=== PATIENT | female | born 1960 | race Caucasian/White ===

== ENCOUNTER 2020-05-27 22:43 | Emergency (ER) | payer OTHER, SELFPAY ==
[2020-05-27 22:44] VITALS: BP 133/76; PULSE 88; RESP 18; TEMP 36.3; O2SAT 100
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
[2020-05-27 23:30] VITALS: BP 126/73; PULSE 82; RESP 16; TEMP 36.7; O2SAT 100
== END 2020-05-27 23:31 | disposition home or self-care (01) ==
PROVIDERS: Emergency Provider Emergency Medicine
DX: S01.01XA Laceration without foreign body of scalp, initial encounter (principal); Y08.89XA Assault by other specified means, initial encounter
CPT/HCPCS: 12001; 99282

== ENCOUNTER 2022-09-08 13:59 | Emergency (ER) | payer OTHER, SELFPAY ==
--- NOTE | ~2022-09-08 | XR_ITS ---
EXAMINATION: XR wrist LT min 3V DATE: 09/08/2022 14:22 INDICATION: Left wrist pain TECHNIQUE: Posteroanterior, ulnar deviation, oblique, and lateral views of the left wrist were obtain ed. COMPARISON: None available FINDINGS: Bone alignment is normal. There is no fracture. 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 The soft tissues are unremarkable. IMPRESSION: 1. No acute osseous abnormality. Reviewed, dictated and finalized at location B. ION MECHANIC APPRENTICE
--- NOTE | 2022-09-08 14:05 | ED.UPPEXIN ---
HPI - Extremity Injury (Upper) General Chief Complaint: Extremity Injury, Upper Stated Complaint: injury to left hand/wrist Time Seen by Provider: 09/08/22 14:09 Source: patient and RN notes reviewed Mode of arrival: ambulatory Limitations: no limitations History of Present Illness HPI narrative: 61-year-old female presents to the [facility] with complaints of left hand pain. 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 Patient states last night she injured the dorsal aspect of the left hand. Does have good range of motion. Sensation intact. No snuffbox tenderness Related Data Home Medications Medication Instructions Recorded Confirmed No Home Medications 05/27/20 09/08/22 Allergies Allergy/AdvReac Type Severity Reaction Status Date / Time No Known Allergies Allergy Mild Verified 09/08/22 14:13 Review of Systems Review of Systems: All systems reviewed & are unremarkable except as noted in HPI and below Constitutional: Constitutional: Reports no additional constitutional complaints Eyes: Eyes: Reports no additional eye complaints ENT: Reports system reviewed and no additional complaints, except as documented Cardiovascular: Cardiovascular: Reports no additional cardiovascular complaints, Denies chest pain and Denies dyspnea Respiratory: Respiratory: Reports no additional respiratory complaints, Denies chest congestion, Denies cough and Denies dyspnea Gastrointestinal: Gastrointestinal: Reports no additional gastrointestinal complaints, Denies abdominal pain, Denies nausea and Denies vomiting Musculoskeletal: Musculoskeletal: Reports as per HPI, Reports arthralgias and Reports joint swelling Integumentary/Breasts: Skin/Breast: Reports system reviewed and no additional complaints, except as docu Neurologic: Reports system reviewed and no additional complaints, except as documented Psychiatric: Psychiatric: Reports no additional psychiatric complaints Allergic/Immunologic: Allergic/Immunologic: Reports no additional allergic/immunologic complaints PMFSH Comments At the time of my signature, I reviewed and agree with the nursing past medical, surgical, social, and family history. There is no relevant family history pertinent to the patient complaint. Exam Const: General: cooperative, healthy appearing, comfortable, no acute distress, well developed, alert and well nourished Nutritional Appearance: well nourished Orientation/consciousness: patient oriented x3 Limitations: no limitations HENMT: Head: normal to inspection Ears: hearing grossly normal bilaterally and external ears normal Face/Nose/Sinus: Normal external nose present, Normal nares present, Normal nasal mucous membranes and turbinates present and normal facial exam Face and sinus: normal facial exam Eyes: General: appearance normal, both eyes and all related structures Alignment and Position: alignment normal Periorbital: periorbital findings normal Conjunctivae: conjunctivae normal Pupils: Equal, round and reactive pupils present EOM: EOMs intact bilaterally Neck: Neck: normal visual inspection, full ROM, no lymphadenopathy and no meningeal signs Chest: Chest palpation & inspection: normal inspection of the chest Resp: Effort & Inspection: normal respiratory effort and able to speak in complete sentences Auscultation: clear to auscultation bilaterally, no crackles, no rales, no rhonchi and no wheezes Cardio: Rate: regular rate Rhythm: regular rhythm Back/Spine/Pelvis: Cervical Spine: cervical ROM normal Thoracic/Lumbar Spine: No thoracic spinal tenderness Skin: General skin exam: normal color and no rashes or lesions noted Lesions: no lesions Rashes: no rashes Wounds: no wounds Neuro: General: patient oriented x3, gait normal, tone normal, moves all extremities and no meningeal signs Cranial nerves: Yes Equal, round and reactive pupils present Cognition (Neuro): normal cognition Speech: normal speech Gait exam (Neuro):
[2022-09-08 14:10] VITALS: BP 123/72; PULSE 80; RESP 18; TEMP 36.8; O2SAT 98
== END 2022-09-08 14:42 | disposition home or self-care (01) ==
PROVIDERS: Emergency Provider Nurse Practitioner
DX: S60.222A Contusion of left hand, initial encounter (principal); X58.XXXA Exposure to other specified factors, initial encounter; M25.532 Pain in left wrist
CPT/HCPCS: 73110; 99213; G0463

== ENCOUNTER 2025-03-05 11:32 | Emergency (ER) | payer MEDICARE, SELFPAY ==
--- NOTE | ~2025-03-05 | XR_ITS ---
XR_[id number]_CR 03/05/2025 12:16 Indication: Right lateral neck pain Procedure: 4 view cervical spine Comparison: No prior studies for comparison. Findings: Straightening of cervical lordosis. There is degenerative anterolisthesis at C4-5. There is disc narrowing at C5-6 and C6-7. There is moderate multilevel uncinate and facet hypertrophy. Odonto id process is normal. Impression: 1: Moderate cervical spondylosis. Reviewed, dictated and finalized at location A. Impression: 1: Moderate cervical spondylosis.
--- NOTE | ~2025-03-05 | XR_ITS ---
[XR ribs LT 2V ] INDICATION: Left rib pain TECHNIQUE: Frontal projection of the upper left ribs, frontal projection of the lower left ribs, obli que projection of all the left ribs, frontal inspiratory chest x-ray for interpretation. FINDINGS: There are no displaced rib fractures identified. There are no soft tissue abnormality see n. The lungs are clear. IMPRESSION: 1:No acute displaced rib fractures. Reviewed, dictated and finalized at location A.
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
[2025-03-05 11:42] VITALS: BP 133/66; PULSE 83; RESP 18; TEMP 36.6; O2SAT 100
--- OUTSIDE RECORDS SUMMARY | 2025-03-05 11:45 | XMS_ITS | Clinical Summary ---
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 Gender Identity Not on file Sexual Orientation Not on file Plan of Treatment Health Maintenance Due Date Last Done Comments Hepatitis C Virus (HCV) Screening 1960 TdaP Immunization 1960 Pap Smear 11/21/1980 Cervical Cancer Screening (CCS) 11/21/1989 HPV/Cotest 11/21/1989 Cologuard 11/21/2004 Colonoscopy 11/21/2004 Colorectal Cancer Screening 11/21/2004 Immunochemical Fecal Occult Blood 11/21/2004 Pneumococcal Immunization (5 0+ years) (1 of 1 - PCV) 11/21/2009 Zoster Immunization (1 of 2) 11/21/2009 SARS-COV-2 Immunization ( - 2023-25 season) 2024 Influenza Immunization (#1) 2025 Respiratory Syncytial Virus (RSV) Immunization (Adult) (1 - 1-dose 75+ series) 11/21/2034 Hepatitis B Immunization Aged Out No longer eligible based on patient's age to complete this topic Human Papillomavirus (HPV) Immunization Aged Out No longer eligible b ased on patient's age to complete this topic Meningococcal Immunization (ACWY) Aged Out No longer eligible based on patient's age to complete this topic Rotavirus Immunization Aged Out No lo nger eligible based on patient's age to complete this topic
--- OUTSIDE RECORDS SUMMARY | 2025-03-05 11:46 | XMS_ITS ---
Author Organization [facility] [employer] Address [address] [place] [address] Care Team Providers Care Punching Machine Operator Name Role Phone StephanieGabino Primary Care Provider REASON FOR VISIT BLOOD WORK/ RESWAB Encounters Encounter Location Date Provider Diagnosis [facility] [address] [place] [id number] 04/02/2024 Gabino Brown Plan Of Treatment Next Appt Details Provider Name:Gabino Brown, 03/09/2025 09:30:00 AM, [address] [place] [address], [phone], Progress Notes * MARISAConor JAIMESCelineOB:1960 (64 yo F)Acc No.[id number]:04/02/2024 Progress Notes Patient: Fara Thomas Provider: Amarilis Brown MD :1960 A ge:63 Y S ex:Female Date:04/02/2024 Phone: Address:[address] [place], [place] [id number] Subjective: * Chief Complaints: * B LOOD WORK/ RESWAB * Electronic signature of Sriram Brown on 03/05/2025 at 11:45 AM CDT Sign off status: Pending * Provider: Amarilis Brown MD Date: 0 04/02/2024 Generated for Christinei ng/Faxing/eTransmitting on: 03/05/2025 11:45 AM CDT
--- OUTSIDE RECORDS SUMMARY | 2025-03-05 11:46 | XMS_ITS | Clinical Summary ---
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 Gender Identity Not on file Sexual Orientation Not on file Plan of Treatment Health Maintenance Due Date Last Done Comments DTAP/TDAP/TD VACCINES (1 - Tdap) 11/21/1978 COLORECTAL SCREENING 11/21/2004 Colorectal Cancer Screening 11/21/2004 FIT-DNA Q 3 years 11/21/2004 FIT/FOBT Q 1 year 11/21/2004 Flex Sig/CT Colonography Q 5 years 11/21/2004 PNEUMOCOCCAL VACCINE 50+ YEA RS (1 of 1 - PCV) 11/21/2009 ZOSTER VACCINE (1 of 2) 11/21/2009 BREAST CANCER SCREENING 06/02/2023 06/02/2022, 06/02 OSTEOPOROSIS SCREENING 11/21/2024 INFLUENZA VACCINE (#1) 2025 RSV VACCINE (60+ or ) (1 - 1-dose 75+ series) 11/21/2034 Insurance [address] [id number] [email or web address] PPO Care Teams Cyanide Pot Tender Relationship Specialty Start Date End Date Tony Mccullough MD PCP - General Internal Medicine 02/11/20
--- OUTSIDE RECORDS SUMMARY | 2025-03-05 11:46 | XMS_ITS ---
Author Organization [employer] [facility] Address [address] [place] [address] Care Team Providers Care Group Chief Operator Name Role Phone FIORELLA CARBALLO Primary Care Provider REASON FOR VISIT reswab hpv ruddy Encounters Encounter Location Date Provider Diagnosis [facility] [address] [place] [address] 04/18/2024 FIORELLA CARBALLO Plan Of Treatment No Information Progress Notes * Joel JOVELOB:1960 (64 yo F)Acc No.[id number]:04/18/2024 Progress Notes Patient: Fara SOLORZANO Provider: Amarilis CARBALLO MD :1960 A ge:63 Y S ex:Female Date:04/18/2024 Phone: Address:[address] [place], [place] [id number] Subjective: * Chief Complaints: * 1 . Reswab hpv ruddy. * Medical History: Objective: * Vitals: Assessment: Plan: * Treatment: * Billing Information: * Visit Code: * Procedure Codes: * Electronic signature of DARIANA CARBALLO MD on 03/05/2025 at 11:46 AM CDT Sign off status: Pending * Provider: Amarilis CARBALLO MD Date: 0 04/18/2024 Generated for Ozzie dennis/Sherwin/eTransmitting on: 03/05/2025 11:46 AM CDT
--- OUTSIDE RECORDS SUMMARY | 2025-03-05 11:47 | XMS_ITS | Encounter Summary ---
Author Organization [facility] Address [address] [place] [address] Care Team Providers Care Principal Scientist Name Role Phone Tony Mccullough MD Primary Care Provider [phone] Encounter Details Date Type Department Care Team (Late st Contact Info) Description 09/18/2001 Outpatient Historical [facility] Family Medicine [facility] [address] [place] [address] Víctor Baxter MD [address] [place] [address] Social History Tobacco Use Types Packs/Day Years Used Date Smoking Tobacco: Never Assessed Comments Unknown Sex and Gender Information Value Date Recorded Sex Assigned at Not on file 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 Gender Identity Not on file Sexual Orientation Not on file documented as of this encounter Plan of Treatment Not on file documented as of this encounter Visit Diagnoses Not on filedocumented in this encounter Additional Health Concerns Infection Onset Date Last Indicated Resolved Time R/O COVID-19 02/11/2020 02/11/2020 02/13/2020 6:31 AM CDT R/O COVID-19 06/01/2020 06/01/2020 06/03/2020 5:17 AM MANAGER MEDIA documented as of this encounter Care Teams Principal Scientist Relationship Specialty Start Date End Date Tony Mccullough MD PCP - General Internal Medicine 02/11/20 documented as of this encounter
--- OUTSIDE RECORDS SUMMARY | 2025-03-05 11:47 | XMS_ITS | Encounter Summary ---
Author Organization [facility] Address [address] [place] [address] Care Team Providers Care Global Mobility Specialist Name Role Phone Tony Mccullough MD Primary Care Provider [phone] Encounter Details Date Type Department Care Team (Late st Contact Info) Description 02/27/2003 Outpatient Historical [facility] Family [facility] [address] [place] [address] Víctor Baxter MD [address] [place] [address] Social History Tobacco Use Types Packs/Day Years Used Date Smoking Tobacco: Never Assessed Comments Unknown Sex and Gender Information Value Date Recorded Sex Assigned at Not on file 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 Gender Identity Not on file Sexual Orientation Not on file documented as of this encounter Plan of Treatment Not on file documented as of this encounter Visit Diagnoses Not on filedocumented in this encounter Additional Health Concerns Infection Onset Date Last Indicated Resolved Time R/O COVID-19 02/11/2020 02/11/2020 02/13/2020 6:31 AM CDT R/O COVID-19 06/01/2020 06/01/2020 06/03/2020 5:17 AM COMMUTATOR OPERATOR documented as of this encounter Care Teams Global Mobility Specialist Relationship Specialty Start Date End Date Tony Mccullough MD PCP - General Internal Medicine 02/11/20 documented as of this encounter
--- OUTSIDE RECORDS SUMMARY | 2025-03-05 11:47 | XMS_ITS ---
Author Organization [employer] [facility] Address [address] [facility] [place] [address] Care Team Providers Care Sql Tech Name Role Phone FIORELLA CARBALLO Primary Care Provider REASON FOR VISIT reswab hpv/discuss tirzepatide Encounters Encounter Location Date Provider Diagnosis [facility] [address] [place] [address] 08/12/2024 FIORELLA CARBALLO Plan Of Treatment No Information Progress Notes * Joel JOVELOB:1960 (64 yo F)Acc No.[id number]:08/12/2024 Progress Notes Patient: Fraa SOLORZANO Provider: Amarilis CARBALLO MD :1960 A ge:63 Y S ex:Female Date:08/12/2024 Phone: Address:[address] [place], [place] [phone] Subjective: * Chief Complaints: * 1 . Reswab hpv/discuss tirzepatide. * Medical History: Objective: * Vitals: Assessment: Plan: * Treatment: * Billing Information: * Visit Code: * Procedure Codes: * Electronic signature of DARIANA CARBALLO MD on 03/05/2025 at 11:47 AM CDT Sign off status: Pending * Provider: Amarilis CARBALLO MD Date: 0 08/12/2024 Generated for Ozzie dennis/Sherwin/eTbhavyasmitting on: 0 03/05/2025 11:47 AM CDT
--- OUTSIDE RECORDS SUMMARY | 2025-03-05 11:47 | XMS_ITS | Encounter Summary ---
Author Organization [facility] Address [address] [place] [address] Care Team Providers Care Parking Meter Servicer Name Role Phone Tony Mccullough MD Primary Care Provider [phone] Encounter Details Date Type Department Care Team (Late st Contact Info) Description 08/14/2001 Outpatient Historical [facility] Family Medicine [facility] [address] [place] [address] Víctor Baxter MD [address] [place] [address] Social History Tobacco Use Types Packs/Day Years Used Date Smoking Tobacco: Never Assessed Comments Unknown Sex and Gender Information Value Date Recorded Sex Assigned at Not on file Legal Sex Female 5:23 AM DIRECTOR MARKET INTELLIGENCE Gender Identity Not on file Sexual Orientation Not on file documented as of this encounter Plan of Treatment Not on file documented as of this encounter Visit Diagnoses Not on filedocumented in this encounter Additional Health Concerns Infection Onset Date Last Indicated Resolved Time R/O COVID-19 02/11/2020 02/11/2020 02/13/2020 6:31 AM CDT R/O COVID-19 06/01/2020 06/01/2020 06/03/2020 5:17 AM DIRECTOR MARKET INTELLIGENCE documented as of this encounter Care Teams Parking Meter Servicer Relationship Specialty Start Date End Date Tony Mccullough MD PCP - General Internal Medicine 02/11/20 documented as of this encounter
--- OUTSIDE RECORDS SUMMARY | 2025-03-05 11:47 | XMS_ITS | Clinical Summary ---
Author Organization [address] Address [address] [place] [address] Care Team Providers Care Drying Tunnel Operator Name Role Phone No, Physician Primary Care Provider [phone] Allergies Active Allergy Reactions Criticality Noted Date Comments Diphenhydramine Fluorometholone Other (See comments) Low 09/26/2023 Unknown Neomycin-Polymyxin B-Dexameth Other (See comments) Low 09/26/2023 Rash, swelling Tobramycin-Dexamethasone Other (See comments) Low 09/26/2023 Rash, swelling Medications clindamycin (CLEOCIN) 150 mg capsule TAKE 2 CAPSULES BY MOUTH TWICE DAILY UNTIL GONE 05/20/2024 Active Active Problems No known active problems Surgical History Surgery Date Site/Laterality Comments [place] DELIVERY ONLY Section - (Added by TW Conv) KNEE SURGERY Knee Surgery - (Added by TW Conv) Social History Tobacco Use Types Packs/Day Years Used Date Smoking Tobacco: Never Tobacco Cessation:Counseling Given: Not Answered Comments Unknown Sex and Gender Information Value Date Recorded Sex Assigned at Not on file Legal Sex Female 8:46 AM SUPERVISOR ELEMENTARY EDUCATION Gender Identity Not on file Sexual Orientation Not on file Obstetrics History Last Filed Vital Signs Vital Sign Reading Time Taken Comments Blood Pressure 126/80 06/22/2024 5:26 PM SUPERVISOR ELEMENTARY EDUCATION Pulse 93 06/22/2024 5:26 PM SUPERVISOR ELEMENTARY EDUCATION Temperature 37.6 C (99.7 F) 06/22/2024 5:26 PM SUPERVISOR ELEMENTARY EDUCATION Respiratory Rate 20 06/22/2024 5:26 PM SUPERVISOR ELEMENTARY EDUCATION Oxygen Saturation 99% 06/22/2024 5:26 PM SUPERVISOR ELEMENTARY EDUCATION Inhaled Oxygen Concentration - - Weight 61.7 kg (136 lb) 06/22/2024 5:26 PM SUPERVISOR ELEMENTARY EDUCATION Height 157.5 cm (5' 2.01) 09/26/2023 9:32 AM CS T Body Mass Index 24.87 09/26/2023 9:32 AM SUPERVISOR ELEMENTARY EDUCATION Plan of Treatment Health Maintenance Due Date Last Done Comments Breast Cancer Screening-Mammogram 1960 Cervical Cancer Screening 1960 Colon Cancer Screening-Colonoscopy 1960 Depression Screening 1960 Fall Risk Assessment 1960 Hepatitis C Screening 1960 Osteoporosis Screening-Bone Density Scan 1960 DTaP/Tdap/Td Vaccine (1 - Tdap) 11/21/1970 Hepatitis B Screening 11/21/1977 Pneumococcal vaccine 65+ (1 of 1 - PCV) 11/21/2009 Zoster Vaccine (1 of 2) 11/21/2009 Well Visit 65+ 11/21/2024 Influenza Vaccine (#1) 2025 Insurance [facility] [id number] Care Teams Drying Tunnel Operator Relationship Specialty Start Date End Date No, Physician PCP - General 09/08/22
--- OUTSIDE RECORDS SUMMARY | 2025-03-05 11:47 | XMS_ITS | Encounter Summary ---
Author Organization [facility] Address [address] [place] [address] Care Team Providers Care Branch General Manager Name Role Phone Tony Mccullough MD Primary Care Provider [phone] Encounter Details Date Type Department Care Team (Latest Contact Info) Description 10/04/2005 Outpatient Historical [place] [address] [place] [address] Other Screening Mammogram (Primary Dx) Social History Tobacco Use Types Packs/Day Years Used Date Smoking Tobacco: Never Assessed Comments Unknown Sex and Gender Information Value Date Recorded Sex Assigned at Not on file Legal Sex Female 5:23 AM WASHERY ENGINEER Gender Identity Not on file Sexual Orientation Not on file documented as of this encounter Plan of Treatment Not on file documented as of this encounter Visit Diagnoses Diagnosis Other screening mammogram- Primary documented in this encounter Additional Health Concerns Infection Onset Date Last Indicated Resolved Time R/O COVID-19 02/11/2020 02/11/2020 02/13/2020 6:31 AM CDT R/O COVID-19 06/01/2020 06/01/2020 06/03/2020 5:17 AM WASHERY ENGINEER documented as of this encounter Care Teams Branch General Manager Relationship Specialty Start Date End Date Tony Mccullough MD PCP - General Internal Medicine 02/11/20 documented as of this encounter
--- OUTSIDE RECORDS SUMMARY | 2025-03-05 11:47 | XMS_ITS ---
Author Organization [facility] Address [address] [facility] [place] [address] Care Team Providers Care Operating Room Scheduler Name Role Phone FIORELLA CARBALLO Primary Care Provider REASON FOR VISIT RESWAB HPV/ HM Encounters Encounter Location Date Provider Diagnosis [facility] [address] [place] [address] 08/19/2024 FIORELLA CARBALLO Plan Of Treatment No Information Progress Notes * Joel JOVELOB:1960 (64 yo F)Acc No.[id number]:08/19/2024 Progress Notes Patient: Fara SOLORZANO Provider: Amarilis CARBALLO MD :1960 A ge:63 Y S ex:Female Date:08/19/2024 Phone: Address:[address] [place], [place] [address] Subjective: * Chief Complaints: * 1 . RESWAB HPV/ HM. * Medical History: Objective: * Vitals: Assessment: Plan: * Treatment: * Billing Information: * Visit Code: * Procedure Codes: * Electronic signature of DARIANA CARBALLO MD on 03/05/2025 at 11:46 AM CDT Sign off status: Pending * Provider: Amarilis CARBALLO MD Date: 0 08/19/2024 Generated for Christinei ng/Faemilg/eTransmitting on: 0 03/05/2025 11:46 AM CDT
--- OUTSIDE RECORDS SUMMARY | 2025-03-05 11:47 | XMS_ITS ---
Author Organization [facility] Address [address] [place] [address] Care Team Providers Care Ceramics Teacher Name Role Phone Gabino Brown Primary Care Provider REASON FOR VISIT reswab hpv/discuss tirzepatide Encounters Encounter Location Date Provider Diagnosis [facility] [address] [place] [address] 08/12/2024 Gabino Brown Plan Of Treatment Next Appt Details Provider Name:Gabino Brown, 03/09/2025 09:30:00 AM, [address] [place] [address], [phone], Progress Notes * TAMIKONAOMI ConorCelineOB:1960 (64 yo F)Acc No.[id number]:08/12/2024 Patient: Fara Thomas Provider: Amarilis Brown MD :1960 A ge:63 Y S ex:Female Date:08/12/2024 Phone: Address:[address] [place], [place] [phone] Subjective: * Chief Complaints: * R eswab hpv/discuss tirzepatide * Electronic signature of Sriram Brown on 03/05/2025 at 11:47 AM CDT Sign off status: Pending * Provider: Amarilis Brown MD Date: 0 08/12/2024 Generated for Ozzie dennis/Sherwin/eTransmitting on: 0 03/05/2025 11:47 AM CDT
--- OUTSIDE RECORDS SUMMARY | 2025-03-05 11:48 | XMS_ITS | Encounter Summary ---
Author Organization [facility] Address [address] [place] [address] Care Team Providers Care Tip Cutter Name Role Phone Tony Mccullough MD Primary Care Provider [phone] Encounter Details Date Type Department Care Team (Latest Contact Info) Description 10/16/2005 Outpatient Historical [facility] Brown, [place] [address] [place] [address] Observation for Other Specified Suspected Conditions (Primary Dx) Social History Tobacco Use Types Packs/Day Years Used Date Smoking Tobacco: Never Assessed Comments Unknown Sex and Gender Information Value Date Recorded Sex Assigned at Not on file Legal Sex Female 5:23 AM SERVICE MEMBER Gender Identity Not on file Sexual Orientation Not on file documented as of this encounter Plan of Treatment Not on file documented as of this encounter Visit Diagnoses Diagnosis Observation for other specified suspected conditions- Primary documented in this encounter Additional Health Concerns Infection Onset Date Last Indicated Resolved Time R/O COVID-19 02/11/2020 02/11/2020 02/13/2020 6:31 AM CDT R/O COVID-19 06/01/2020 06/01/2020 06/03/2020 5:17 AM SERVICE MEMBER documented as of this encounter Care Teams Tip Cutter Relationship Specialty Start Date End Date Tony Mccullough MD PCP - General Internal Medicine 02/11/20 documented as of this encounter
--- OUTSIDE RECORDS SUMMARY | 2025-03-05 11:48 | XMS_ITS | Patient Health Record ---
Author Organization Alberto Mccullough MD [facility] Address [address] [place], [place] [address] Care Team Providers Care Cable Installer Name Role Phone Alberto Mccullough Primary Care Provider Allergies No Known Allergies Results Component Value Reference Range Notes TSH Reviewed date:10/17/2024 12:52:20 PM Interpretation:Abnormal Performing Lab:[facility] [employer], Phone - [phone], [facility]/Report: TSH 3.140 0.450-4.500 uIU/mL HEMOGLOBIN A1c Reviewed date:10/17/2024 12:52:20 PM Interpretation:Abnormal Performing Lab:[facility] [employer], Phone - [phone], Director - Marco Notes/Report: Hemoglobin A1c 5.6 4.8-5.6 % . Prediabetes: 5.7 - 6.4 Diabetes: >6.4 Glycemic control for adults with diabetes: <7.0 COMPREHENSIVE METABOLIC PANE L Reviewed date:10/17/2024 12:52:20 PM Interpretation:Abnormal Performing Lab:[facility] [employer] [facility], Phone - [phone], Director - PhDMaruo Notes/Report: Glucose 88 70-99 mg/dL BUN 11 8-27 mg/dL Creatinine 0.60 0.57-1.00 mg/dL eGFR 100 >59 mL/min/1.73 BUN/Creatinine Ratio 18 12-28 Sodium 141 134-144 mmol/L Potassium 4.4 3.5-5.2 mmol/L Chloride 102 96-106 mmol/L Carbon Dioxide, Total 25 20-29 mmol/L Calcium 9.6 8.7-10.3 mg/dL Protein, Total 6.9 6.0-8.5 g/dL Albumin 4.4 3.9-4.9 g/dL Globulin, Total 2.5 1.5-4.5 g/dL Bilirubin, Total 0.4 0.0-1.2 mg/dL Alkaline Phosphatase 74 44-121 IU/L AST (SGOT) 24 0-40 IU/L ALT (SGPT) 21 0-32 IU/L LIPID PANEL-L Reviewed date:10/17/2024 12:52:20 PM Interpretation:Abnormal Performing Lab:[facility] [place], [address] [facility], Phone - [phone], Director - [facility]/Report: Cholesterol, Total 199 100-199 mg/dL Triglycerides 99 0-149 mg/dL HDL Cholesterol 60 >39 mg/dL VLDL Cholesterol Raffi 18 5-40 mg/dL LDL Chol Calc (NIH) 121 0-99 mg/dL CBC Reviewed date:10/17/2024 12:52:20 PM Interpretation:Abnormal Performing Lab:[facility] [place], [address] [facility], Phone - [phone], Director - [facility] Notes/Report: WBC 5.5 3.4-10.8 x10E3/uL RBC 4.57 3.77-5.28 x10E6/uL Hemoglobin 13.7 11.1-15.9 g/dL Hematocrit 40.7 34.0-46.6 % MCV 89 79-97 fL MCH 30.0 26.6-33.0 pg MCHC 33.7 31.5-35.7 g/dL RDW 12.7 11.7-15.4 % Platelets 293 150-450 x10E3/uL Neutrophils 61 Not Estab. % Lymphs 31 Not Estab. % Monocytes 6 Not Estab. % Eos 1 Not Estab. % Basos 1 Not Estab. % Neutrophils (Absolute) 3.3 1.4-7.0 x10E3/uL Lymphs (Absolute) 1.7 0.7-3.1 x10E3/uL Monocytes(Absolute) 0.4 0.1-0.9 x10E3/uL Eos (Absolute) 0.1 0.0-0.4 x10E3/uL Baso (Absolute) 0.0 0.0-0.2 x10E3/uL Immature Granulocytes 0 Not Estab. % Immature Grans (Abs) 0.0 0.0-0.1 x10E3/uL Reason For Referral No Information Medications Medication SIG (Take, Route, Frequency, Duration) Notes Start Date End Date Status ALPRAZolam 0.25 MG 1 tablet Orally Twic e a day; Duration: 7 days 10/14/2024 Active Tessalon Perles 100 MG 1 capsule as need ed Orally Three times a day 07/12/2020 Not-Kee ing Zofran 4 MG 1 tablet as needed O rally twice a day 07/12/2020 Not-Taking Valium 5 MG 1 tablet as needed O rally QHS; Duration: 30 days 08/21/2014 Not-Takin g Problems Problem Type SNOMED Code ICD Code Onset Dates Problem Status W/U Status Risk Notes Problem 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) (949564094378465) 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, 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 Problem 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 central origin, unspecified ear (H81.49) Active confirmed Problem Otalgia of right ear (finding) (5860277232) Otalgia, right ear (H92.01) Active confirmed Problem Knee stiff (450244930) Stiffness of left knee, not elsewhere classified (M25.662) Active confirmed 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] (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) Active confirmed Problem Sprain of hand (93789032) Sprain of unspecified part of left wrist and hand, initial encounter (S63.92XA) Active confirmed Problem Anxiety (98170697) Anxiety (F41.9) Active confirmed Problem Sciatica (68296286) Sciatica of left side (M54.32) Active confirmed Problem Dizziness (339029095) Dizziness (R42) Active confirmed Problem Sacroiliitis (17459263) Sacroiliitis (M46.1) Active confirmed Problem Acute pain of left knee (M25.562) Active confirmed Problem Onychomycosis (272884696) Onychomycosis (B35.1) Active confirmed Problem 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 [address] [place] [address] [address] [place], [place] [phone] 10/14/2024 Alberto Mccullough Encounter for genera l adult medical examination without abnormal findings Z00.00 ; Encounter for screening for depression Z13.31 ; Encounter for screening examination for other mental health and behavioral disorders Z13.39 ; Anxiety F41.9 ; Family history of diabetes mellitus Z83.3 ; Family history of thyroid disease Z83.49 and Vertigo of central origin, unspecified ear H81.49 Assessments Encounter Date Diagnosis (ICD Code) Assessment Notes Treatment Notes Treatment Clinical Notes Section Notes 10/14/2024 Encounter for general adult medical examination without abnormal findings (ICD-10 - Z00.00) History, medications, screenings and immunizations reviewed and discussed 10/14/2024 Encounter for screening for depression (ICD-10 - Z13.31) PHQ 2 screen is negative, time spent assessing patient 8 min 10/14/2024 Encounter for screening examination for other mental health and behavioral disorders (ICD-10 - Z13.39) AUDIT C screen is negative, time spent assessing patient 8 min 10/14/2024 Anxiety (ICD-10 - F41.9) start taking Xanax 0.25 mg 10/14/2024 Family history of diabetes mellitus (ICD-10 - Z83.3) check HbA1c, diet discussed 10/14/2024 Family history of thyroid disease (ICD-10 - Z83.49) Check TSH 10/14/2024 Vertigo of central origin, unspecified ear (ICD-10 - H81.49) Take meclizine OTC 10/14/2024 Other Plan Of Treatment Pending Test Test Name Order Date X ray : Chest 12/14/2015 Colonoscopy 05/21/2019 Chest X-ray PA and lateral 07/12/2020 X ray : CHEST PA LATERAL 12/31/2023 MAMMOGRAM, SCREENING 03/29/2017 MAMMOGRAM, SCREENING 05/21/2019 CT Scan : M-Facial W/O Contrast 04/04/20 23 Occult Blood, Fecal, IA 06/15/2020 Physical Therapy 06/25/2023 Insurance Providers Payer Name Payer Address Payer Phone Subscriber Number Group Number Insured Name Patient Relationship to Insured Coverage Start Date Coverage End Date [employer] PPO [address] [place] [address] [id number] Fara Jovel Self - patient is the insured Medical (General) History Medical History History ICD Code Vertigo of central origin Surgical History Surgery Date(Month/Year)
--- OUTSIDE RECORDS SUMMARY | 2025-03-05 11:49 | XMS_ITS | Patient Health Record ---
Author Organization [employer] [facility] Address [address] [place] [address] Care Team Providers Care Draw Tender Name Role Phone HARIS FIORELLA Primary Care Provider [phone] Allergies No Known Allergies Reason For Referral No Information Problems Problem Type SNOMED Code ICD Code Onset Dates Problem Status W/U Status Risk Notes Problem Menopause (216847962) Menopausal and female climacteric states (N95.1) Active confirmed Problem Postmenopausal atrophic vaginitis (N95.2) Active confirmed Plan Of Treatment No Information Insurance Providers Payer Name Payer Address Payer Phone Subscriber Number Group Number Insured Name Patient Relationship to Insured Coverage Start Date Coverage End Date [employer] OA II [address] [place] [address] [id number] Fara Jovel Self - patient is the insured
--- OUTSIDE RECORDS SUMMARY | 2025-03-05 11:52 | XMS_ITS | Patient Health Record ---
Author Organization [employer] Address [address] [place] [address] Care Team Providers Care Service Station Attendant Name Role Phone Gabino Brown Primary Care Provider Allergies No Known Allergies Reason For Referral No Information Problems Problem Type SNOMED Code ICD Code Onset Dates Problem Status W/U Status Risk Notes Problem Menopause (138657953) Menopausal and female climacteric states (N95.1) Active confirmed Problem Postmenopausal atrophic vaginitis (N95.2) Active confirmed Plan Of Treatment Next Appt Details Provider Name:Gabino Brown, 03/09/2025 09:30:00 AM, [address] [facility], [place], [address], Insurance Providers Payer Name Payer Address Payer Phone Subscriber Number Group Number Insured Name Patient Relationship to Insured Coverage Start Date Coverage End Date [employer] [address] [place] [address] [id number] Fara Jovel Self - patient is the insured
== END 2025-03-05 12:46 | disposition home or self-care (01) ==
PROVIDERS: Emergency Provider Nurse Practitioner Family
DX: S16.1XXA Strain of muscle, fascia and tendon at neck level, initial encounter (principal); S20.212A Contusion of left front wall of thorax, initial encounter; W03.XXXA Other fall on same level due to collision with another person, initial encounter
CPT/HCPCS: 71100; 72040; 99214; G0463